=== PATIENT | female | born 1980 | race Two or more races ===

== ENCOUNTER 2023-11-21 00:21 | Emergency (ER) | payer SELFPAY ==
[~2023-11-21] VITALS: Ht 170.2 cm; Wt 68.0 kg
[2023-11-21 01:41] VITALS: TEMP 97.6
[2023-11-21 05:25] VITALS: BP 112/74; O2SAT 100
== END 2023-11-21 05:26 | disposition left against medical advice (07) ==
LOC: ER 00:23
DX: F10.10 Alcohol abuse, uncomplicated (principal); Z88.1 Allergy status to other antibiotic agents; Y90.9 Presence of alcohol in blood, level not specified